=== PATIENT | male | born 1995 | race Caucasian/White ===

== ENCOUNTER 2019-11-07 00:19 | Emergency (ER) | payer SELFPAY ==
[2019-11-07 00:25] VITALS: BP 130/82; PULSE 80; RESP 18; TEMP 37.2; O2SAT 98
--- NOTE | 2019-11-07 00:29 | ED.DENTAL ---
HPI - Dental/Oral General Chief complaint: Dental/Oral Stated complaint: tooth ache Source: patient Mode of arrival: ambulatory Limitations: no limitations History of Present Illness HPI Narrative: Patient is a 24-year-old male who comes emergency department with complaints of dental pain. Patient states that pain has been pretty intense for the last day or so. He denies fevers chills nausea or vomiting. States that his mouth hurts he is having trouble sleeping secondary to the pain. MD Complaint: tooth pain Teeth map: 1. cavity and mildly swollen gum line Onset (ago): day(s) Duration: constant Severity: severe Relieving factors: nothing Context: history of dental caries Treatment prior to arrival: none Related Data Allergies Allergy/AdvReac Type Severity Reaction Status Date / Time ibuprofen Allergy Unknown Verified 11/07/19 00:37 Review of Systems Review of Systems: All systems reviewed & are unremarkable except as noted in HPI and below Constitutional: Constitutional: Denies as per HPI, Denies no additional constitutional complaints, Denies chills, Denies fatigue, Denies fever(s) and Denies weakness Eyes: Eyes: Denies as per HPI, Denies no additional eye complaints, Denies change in vision and Denies photophobia Cardiovascular: Cardiovascular: Denies as per HPI, Denies no additional cardiovascular complaints, Denies chest pain, Denies rapid heart rate, Denies radiating jaw, neck or arm pain and Denies slow heart rate Gastrointestinal: Gastrointestinal: Denies as per HPI, Denies no additional gastrointestinal complaints, Denies abdominal pain, Denies bloating, Denies constipation, Denies heartburn, Denies diarrhea, Denies nausea and Denies vomiting Musculoskeletal: Musculoskeletal: Denies no additional musculoskeletal complaints, Denies as per HPI, Denies back pain, Denies myalgias, Denies arthralgias, Denies joint swelling and Denies muscle cramps Neurologic: Denies system reviewed and no additional complaints, except as documented, Denies as per HPI, Denies confusion, Denies vertigo, Denies dizziness, Denies syncope, Denies headache(s), Denies focal weakness, Denies numbness and Denies weakness Psychiatric: Psychiatric: Denies no additional psychiatric complaints, Denies as per HPI, Denies anxiety, Denies depression, Denies homicidal ideation and Denies suicidal ideation [facility] Social History Social History Smoking status: Current every day smoker Alcohol intake: never Substance use: never Exam Const: General: healthy appearing, no acute distress and alert Orientation/consciousness: patient oriented x3 HENMT: Head: normal to inspection Teeth and gingiva: abnormal tooth and associated gingiva (broken tooth on bottom left. mild gum swelling around base of tooth. no ab) Neck: Neck: normal visual inspection Resp: Effort & Inspection: normal respiratory effort Auscultation: clear to auscultation bilaterally Cardio: Rate: regular rate Rhythm: regular rhythm GI: Auscultation: normal bowel sounds Skin: General skin exam: normal color Neuro: General: patient oriented x3 Extrem: General: normal to inspection Psych: Appearance: grossly normal Mental Status: mental status grossly normal Thought content: Yes Normal thought content present Course Course Emergency Course: pt was mad because we didnt have oragel, pain med, and antibiotics to dispense to him. explained these are things that are at pharmacies, but we would be happy to write him a prescription. Vital Signs Vital signs: Vital Signs Temperature 37.2 C 11/07/19 00:25 Pulse Rate 80 11/07/19 00:25 Respiratory Rate 18 11/07/19 00:25 Blood Pressure 130/82 11/07/19 00:25 Pulse Oximetry 98 11/07/19 00:25 Temperature 37.2 C 11/07/19 00:25 Pulse Rate 80 11/07/19 00:25 Respiratory Rate 18 11/07/19 00:25 Blood Pressure 130/82 11/07/19 00:25 Pulse Oximetr
[2019-11-07] MEDS: ACETAMINOPHEN 500 MG TABLET 1000 MG PO (00:43)
[2019-11-07 00:45] VITALS: BP 130/80; PULSE 86; RESP 18; TEMP 37.2; O2SAT 100
== END 2019-11-07 00:55 | disposition home or self-care (01) ==
PROVIDERS: Emergency Provider Emergency Medicine
DX: K08.89 Other specified disorders of teeth and supporting structures (principal)
CPT/HCPCS: 99283

== ENCOUNTER 2020-02-16 04:52 | Emergency (ER) | payer OTHER, SELFPAY ==
[2020-02-16 04:55] VITALS: BP 140/90; PULSE 98; RESP 20; TEMP 37.4; O2SAT 98
[2020-02-16 05:24] LABS: Basophils Absolute Auto 0.01 K/mm3 (0.00-0.10); Basophils Percent Auto 0.1 % (0.0-1.0); Eosinophils Absolute Auto 0.18 K/mm3 (0.02-0.50); Eosinophils Percent Auto 2.4 % (1.0-6.0); Hematocrit 49.1 % (40.0-54.0); Hemoglobin 16.5 g/dL (14.0-18.0); Immature Granulocyte Absolute 0.02 K/mm3 (0.00-0.00); Immature Granulocyte Percent A 0.3 % (0.0-0.0); Lymphocytes Absolute Auto 1.86 K/mm3 (1.10-4.50); Lymphocytes Percent Auto 24.6 % (18.0-42.0); Mean Corpuscular HGB Conc 33.6 g/dL (32.0-36.0); Mean Corpuscular Hemoglobin 31.8 pg (27.0-31.0); Mean Corpuscular Volume 94.6 fL (78.0-102.0); Mean Platelet Volume 8.8 fl (8.7-11.0); Monocytes Absolute Auto 0.86 K/mm3 (0.10-0.90); Monocytes Percent Auto 11.4 % (2.0-11.0); Neutrophils Absolute Auto 4.6 K/mm3 (1.7-7.2); Neutrophils Percent Auto 61.2 % (50.0-70.0); Platelet Count Result 355 K/mm3 (150-420); Red Blood Count 5.19 M/mm3 (4.70-6.10); Red Cell Distribution Width 12.9 % (11.6-14.4); White Blood Count 7.6 K/mm3 (4.8-10.8)
--- NOTE | 2020-02-16 05:24 | ED.PSYCH ---
HPI - Psych General Source: patient and police Mode of arrival: ambulatory Limitations: no limitations History of Present Illness HPI Narrative: 24-year-old man brought to the emergency department by police after threatening to 2 officers that he was going to kill himself by cutting his own neck with a knife. His girlfriend left him 3 days ago with his child and she has been refusing to see him. He states he took a Klonopin 3 or 4 days ago for anxiety but has had no drugs or alcohol. He states that he had a head injury with loss of consciousness in 2011 but was not hospitalized and had seizures when he was a child. Patient states that he said he would harm himself. He states that he asked his girlfriend's grandmother anything would change if he were to kill himself. complaint: suicidal ideation Onset (ago): hour(s) (1-2) Duration: constant History of same: No Relieving factors: none Exacerbating factors: none Associated psychiatric symptoms: suicidal ideation Associated symptoms: denies other symptoms Treatments prior to arrival: placed on mental health hold and physical restraints If self harm: admits thoughts of self harm (but denies that he will act on it.) Details of plan: as above Related Data Allergies Allergy/AdvReac Type Severity Reaction Status Date / Time ibuprofen Allergy Unknown Verified 11/07/19 00:37 Review of Systems Constitutional: Constitutional: Denies chills and Denies fever(s) Eyes: Eyes: Denies change in vision and Denies photophobia ENT: Denies dysphagia, Denies nasal congestion and Denies sore throat Cardiovascular: Cardiovascular: Denies chest pain and Denies radiating jaw, neck or arm pain Respiratory: Respiratory: Denies cough and Denies dyspnea Gastrointestinal: Gastrointestinal: Denies abdominal pain, Denies diarrhea, Denies nausea and Denies vomiting Genitourinary: Genitourinary: Denies dysuria and Denies urinary frequency Musculoskeletal: Musculoskeletal: Denies arthralgias and Denies joint swelling Integumentary/Breasts: Skin/Breast: Denies pruritus, Denies erythema and Denies rash Neurologic: Denies vertigo, Denies dizziness and Denies syncope Hematologic/Lymphatic: Hematologic/Lymphatic: Denies easy bleeding and Denies easy bruising Allergic/Immunologic: Allergic/Immunologic: Denies lip swelling and Denies tongue swelling PMFSH Past Medical History Medical History (Updated 02/19/20 @ 07:08 by Red Mendiola MD) History of seizures as a child Social History Social History Smoking status: Current every day smoker Alcohol intake: current Alcohol use details: occasional Substance use: never Living arrangements: with family Exam Const: General: healthy appearing, no acute distress and alert Orientation/consciousness: patient oriented x3 Limitations: no limitations HENMT: Head: normal to inspection Ears: external ears normal, TM's normal bilaterally and EAC's normal General nose exam: Normal nares present Face and sinus: normal facial exam Mouth: Yes Normal oral and palatal mucosa present Throat: posterior oropharynx normal Eyes: Conjunctivae: conjunctivae normal Pupils: Equal, round and reactive pupils present EOM: EOMs intact bilaterally Resp: Effort & Inspection: normal respiratory effort and not labored Auscultation: clear to auscultation bilaterally, no rales, no rhonchi and no wheezes Cardio: Rate: regular rate Rhythm: regular rhythm Heart sounds: no murmurs Skin: General skin exam: normal color, no jaundice and no pallor Rashes: no rashes Neuro: General: patient oriented x3, moves all extremities, no focal motor deficits and CN's II-XI intact bilaterally Speech: normal speech Gait exam (Neuro): Normal gait present Extrem: General: no clubbing, cyanosis or edema Psych: Appearance: grossly normal and well kempt Affect: normal affect Attitude: cooperative Thought cont
[2020-02-16 05:36] LABS: Appearance Urine Clear (Clear); Bilirubin Urine Negative (Negative); Color Urine Yellow (Yellow); Glucose Urine UA 1+ (Negative); Ketones Urine Negative (Negative); Leukocyte Esterase Ur Negative LEU/UL (Negative); Nitrate Urine Negative (Negative); Protein Urine Negative (Negative); Specific Grav Ur <= 1.005 (1.010-1.020); Urobilinogen Urine 0.2 mg/dL (0.2-1.0); pH Urine 6.5 (5.0-8.0)
[2020-02-16 05:41] LABS: Amphetamine Screen Urine Negative (Negative); Barbiturate Screen Urine Negative (Negative); Benzodiazepines Screen Urine Negative (Negative); Cannabinoid Screen Urine Negative (Negative); Cocaine Screen Urine Negative (Negative); Methadone Screen Urine Negative (Negative); Opiate Screen Urine Negative (Negative); Phencyclidine Screen Urine Negative (Negative)
[2020-02-16 05:42] LABS: Add Urine Microscopic? YES; Bacteria Urine None seen /hpf; Blood Urine Trace-Intact (Negative); RBC Urine 0-2 /hpf (0-2); Squamous Epithelial Cell Urine None seen /hpf (Few); WBC Urine 0-3 /hpf (0-3)
[2020-02-16 05:53] LABS: Alanine Aminotransferase 21 U/L (16-63); Albumin Level 4.6 g/dL (3.4-5.0); Alkaline Phosphatase 71 U/L (46-116); Anion Gap 8 mmol/L (8-16); Aspartate Amino Transferase 15 U/L (15-37); Bilirubin,Total 0.7 mg/dL (0.00-1.00); Blood Urea Nitrogen 8 mg/dL (7-18); Carbon Dioxide 30 mmol/L (21-32); Chloride 102 mmol/L (98-108); Estimated Glomerular Filt Rate > 60; Glucose 95 mg/dL (70-99); Osmolality Calculated 288 mOsm/kg (285-295); Potassium 3.3 mmol/L (3.5-5.1); Salicylate 1.2 mg/dL (2.8-20.0); Sodium 140 mmol/L (136-145); Thyroid Stimulating Hormone 1.34 uIU/mL (0.36-3.74); Total Protein 8.1 g/dL (6.4-8.2)
[2020-02-16 05:56] LABS: Acetaminophen 0 ug/mL (10-30); Ethanol < 3 mg/dL (0-6)
--- NOTE | 2020-02-16 05:57 | PC.NURSE ---
Patient put in hospital gown, patient's belongings are hospital safe, I filled out belongings list and patient signed, patient aware and verbalized understanding.
--- NOTE | 2020-02-16 06:06 | PC.NURSE ---
Patient is sleeping/resting at this time.
--- NOTE | 2020-02-16 06:27 | PC.NURSE ---
call to [facility] for [facility] resource staff.
--- NOTE | 2020-02-16 07:14 | PC.NURSE ---
0550 pt sleeping, 0630 pt sleeping, 0700, pt sleeping . repeated calls from juliana lovell.
--- NOTE | 2020-02-16 07:15 | PC.NURSE ---
call from juliana lovell, counselor from [facility] will be out for eval after opening this morning around 9am.
--- NOTE | 2020-02-16 07:40 | PC.NURSE ---
0730 pt awake, calling boss to call off work. declined breakfast tray offered. soda given per request
[2020-02-16 07:51] VITALS: BP 136/90; PULSE 87; RESP 20; TEMP 37.1; O2SAT 98
--- NOTE | 2020-02-16 08:20 | PC.NURSE ---
food offered, pt declined. cooperative, resting per cot.
--- NOTE | 2020-02-16 09:30 | PC.NURSE ---
pt asking how much longer, explained procedure. awaiting arrival of counselor. offered meal , pt declined. remains in direct vision of RN and/or TECH. pt cooperative.
--- NOTE | 2020-02-16 10:02 | ED.PSYCH ---
HPI - Psych General Chief Complaint: Psychiatric Symptoms Stated Complaint: Mental Health Evaluation Time Seen by Provider: 02/16/20 05:24 Source: patient and police Mode of arrival: ambulatory History of Present Illness Duration: constant Relieving factors: none Exacerbating factors: none Associated symptoms: denies other symptoms Treatments prior to arrival: placed on mental health hold and physical restraints Related Data Allergies Allergy/AdvReac Type Severity Reaction Status Date / Time ibuprofen Allergy Unknown Verified 11/07/19 00:37 [facility] Past Medical History Medical History (Updated 02/16/20 @ 10:06 by Yoseph Scott MD) History of seizures as a child Social History Social History Smoking status: Current every day smoker Alcohol intake: current Alcohol use details: occasional Substance use: never Living arrangements: with family Course Course Emergency Course: Psych Clinician in house has evaluated patient and feels patient is safe to go home w/ deflection/safety plan. I discussed w/ patient who also agrees he is safe and in no harm. He is comfortable going home. Has never atempted suicide or thought of suicide in past. Patient admits he needs help for Anxiety and is willing to d/c home w/ safety plan. Vital Signs Vital signs: Vital Signs Temperature 99.3 F 02/16/20 04:55 Pulse Rate 98 02/16/20 04:55 Respiratory Rate 20 02/16/20 04:55 Blood Pressure 140/90 02/16/20 04:55 Pulse Oximetry 98 02/16/20 04:55 Temperature 98.7 F 02/16/20 07:51 Pulse Rate 87 02/16/20 07:51 Respiratory Rate 20 02/16/20 07:51 Blood Pressure 136/90 02/16/20 07:51 Pulse Oximetry 98 02/16/20 07:51 MDM - Psych Lab Data Result diagrams: 02/16/20 05:10 02/16/20 05:10 Labs: Lab Results 02/16/20 02/16/20 02/16/20 Range/Units 05:10 05:10 05:10 WBC 7.6 (4.8-10.8) K/mm3 RBC 5.19 (4.70-6.10) M/mm3 Hgb 16.5 (14.0-18.0) g/dL Hct 49.1 (40.0-54.0) % MCV 94.6 (78.0-102.0) fL MCH 31.8 H (27.0-31.0) pg MCHC 33.6 (32.0-36.0) g/dL RDW 12.9 (11.6-14.4) % Plt Count 355 (150-420) K/mm3 MPV 8.8 (8.7-11.0) fl Immature Gran % (Auto) 0.3 H (0.0-0.0) % Neut % (Auto) 61.2 (50.0-70.0) % Lymph % (Auto) 24.6 (18.0-42.0) % [place] % (Auto) 11.4 H (2.0-11.0) % Eos % (Auto) 2.4 (1.0-6.0) % Baso % (Auto) 0.1 (0.0-1.0) % Lymph # (Auto) 1.86 (1.10-4.50) K/mm3 [place] # (Auto) 0.86 (0.10-0.90) K/mm3 Eos # (Auto) 0.18 (0.02-0.50) K/mm3 Baso # (Auto) 0.01 (0.00-0.10) K/mm3 Abs Immat Gran (auto) 0.02 H (0.00-0.00) K/mm3 Absolute Neuts (auto) 4.6 (1.7-7.2) K/mm3 Absolute Nucleated RBC 0.00 (0.00-0.00) K/mm3 Nucleated RBC % 0.0 (0-0.0) % Sodium (136-145) mmol/L Potassium (3.5-5.1) mmol/L Chloride (98-108) mmol/L Carbon Dioxide (21-32) mmol/L Anion Gap (8-16) mmol/L BUN (7-18) mg/dL Creatinine (0.70-1.30) mg/dL Estim Creat Clear Calc Estimated GFR (59 - ) Glucose (70-99) mg/dL Calculated Osmolality (285-295) mOsm/kg Calcium (8.5-10.1) mg/dL Total Bilirubin (0.00-1.00) mg/dL AST (15-37) U/L ALT (16-63) U/L Alkaline Phosphatase (46-116) U/L Total Protein (6.4-8.2) g/dL Albumin (3.4-5.0) g/dL TSH (0.36-3.74) uIU/mL Urine Color Yellow (Yellow) Urine Appearance Clear (Clear) Urine pH 6.5 (5.0-8.0) Ur Specific [place] <= 1.005 L (1.010-1.020) Urine Protein Negative (Negative) Urine Glucose (UA) 1+ H (Negative) Urine Ketones Negative (Negative) Ur Blood (Man) Trace-intact H (Negative) Urine Nitrate Negative (Negative) Urine Bilirubin Negative (Negative) Urine Urobilinogen 0.2 (0.2-1.0) mg/dL Leukocyte Esterase Rfl Negative (Negative) KASEY/UL Urine
[2020-02-16 10:14] VITALS: BP 136/85; PULSE 102; RESP 20; TEMP 37.1; O2SAT 98
== END 2020-02-16 10:23 | disposition home or self-care (01) ==
PROVIDERS: Emergency Medicine; Emergency Provider Family Medicine
DX: F41.9 Anxiety disorder, unspecified (principal); R45.851 Suicidal ideations
CPT/HCPCS: 36415; 80053; 80307; 81001; 84443; 85025; 99284

== ENCOUNTER 2020-03-13 00:54 | Emergency (ER) | payer OTHER, SELFPAY ==
--- NOTE | ~2020-03-13 | XR_ITS ---
EXAMINATION: XR forearm LT 2V DATE: 03/13/2020 02:00 INDICATION: Left wrist and elbow pain. Fall 2 days ago. TECHNIQUE: 2 views of left forearm were obtained. COMPARISON: None. FINDINGS: Bone alignment is normal. No fracture. Joint spaces are well maintained. There is no elbow joint effusion. IMPRESSION: 1. Normal left forearm. Reviewed, dictated and finalized at location A. [facility] [employer]CEPTIONIST ASSISTANT IMPRESSION: 1. Normal left forearm.
[2020-03-13 01:27] VITALS: BP 141/89; PULSE 81; RESP 20; TEMP 36.4; O2SAT 98
--- NOTE | 2020-03-13 01:56 | ED.UPPEXIN ---
HPI - Extremity Injury (Upper) General Chief Complaint: Extremity Injury, Upper Stated Complaint: arm pain Source: patient Mode of arrival: ambulatory Limitations: no limitations History of Present Illness HPI narrative: This is a 24-year-old male presents with some injury to his left forearm after he fell off a ladder 2 days ago has limited range of motion secondary to pain there is some point tenderness in the elbow and mid forearm area with no numbness or tingling as strong brisk radial pulse. No other injuries, no nausea vomiting no shortness of breath no chest pain no fever chills. complaint: injury to: left and forearm Handedness: right Place: home Severity: mild Severity scale (1-10): 5 Exacerbating factors: none Context: fall Associated symptoms: denies other symptoms Related Data Home Medications Medication Instructions Recorded Confirmed No Home Medications 03/13/20 03/13/20 Allergies Allergy/AdvReac Type Severity Reaction Status Date / Time ibuprofen Allergy Unknown Verified 11/07/19 00:37 Review of Systems Review of Systems: All systems reviewed & are unremarkable except as noted in HPI and below PMFSH Past Medical History Medical History History of seizures as a child Social History Social History Smoking status: Current every day smoker Alcohol intake: current Substance use: never Exam Const: General: no acute distress Orientation/consciousness: patient oriented x3 HENMT: Head: normal to inspection Eyes: Conjunctivae: conjunctivae normal Pupils: Equal, round and reactive pupils present Neck: Neck: normal visual inspection Chest: Chest palpation & inspection: normal inspection of the chest Resp: Effort & Inspection: normal respiratory effort Cardio: Rate: regular rate Rhythm: regular rhythm GI: GI Palp: Yes Soft to palpation Auscultation: normal bowel sounds Skin: General skin exam: normal color Rashes: no rashes Neuro: General: patient oriented x3, moves all extremities and no meningeal signs Extrem: Other: Point tenderness elbow and mid forearm on the left Psych: Mental Status: mental status grossly normal Course Course Emergency Course: patient declined any pain medication but will evaluate the left elbow and forearm with x-ray. Vital Signs Vital signs: Vital Signs Temperature 36.4 C L 03/13/20 01:27 Pulse Rate 81 03/13/20 01:27 Respiratory Rate 20 11/08/20 01:27 Blood Pressure 141/89 H 03/13/20 01:27 Pulse Oximetry 98 03/13/20 01:27 Temperature 36.4 C L 03/13/20 01:27 Pulse Rate 81 03/13/20 01:27 Respiratory Rate 20 03/13/20 01:27 Blood Pressure 141/89 H 03/13/20 01:27 Pulse Oximetry 98 03/13/20 01:27 Critical Care Time Critical Care Time Critical Care Time: No Discharge Plan Discharge Clinical Impression: Sprain and strain of elbow Patient Disposition: Home, Self-Care Condition: Stable Instructions: Antibiotic Form, Elbow Sprain (ED) Additional Instructions: Can take Tylenol extra-strength 2 to 3 times daily for pain and inflammation, and follow-up with primary care physician if symptoms persist or worsen. Prescriptions: No Action No Home Medications RF: 0 Follow-up/Referrals: UNKNOWN,DOCTOR [Primary Care Provider] - Time of Disposition: 02:03
[2020-03-13 02:16] VITALS: BP 130/70; PULSE 82; RESP 18; TEMP 36.5; O2SAT 99
== END 2020-03-13 02:22 | disposition home or self-care (01) ==
PROVIDERS: Emergency Provider Emergency Medicine
DX: S53.402A Unspecified sprain of left elbow, initial encounter (principal); W11.XXXA Fall on and from ladder, initial encounter
CPT/HCPCS: 73090; 99282; 99283

== ENCOUNTER 2020-08-06 03:20 | Emergency (ER) | payer OTHER, SELFPAY ==
[2020-08-06 03:27] VITALS: BP 138/91; PULSE 110; RESP 20; TEMP 36.8; O2SAT 96
--- NOTE | 2020-08-06 03:34 | ED.URI ---
HPI - URI/Sore Throat General Chief Complaint: Unspecified Stated Complaint: Cough Time Seen by Provider: 08/06/20 03:34 Source: patient Mode of arrival: ambulatory Limitations: no limitations History of Present Illness HPI Narrative: Patient comes in stating he has had 6 episodes of emesis yesterday starting at about 7pm. He states he has had a cough since throwing up, and has had a mild sore throat. He has had no fever, and no chills. He complains of body aches, and comes in wanting to be tested for Covid. He has not taken anything for his body aches. MD elicited complaint: cough and rhinorrhea Onset (ago): hour(s) Consistency: intermittent Severity: mild Description of mucous: watery Able to tolerate fluids by mouth: Yes Exacerbating factors: nothing Relieving factors: nothing Context: sick contacts Associated symptoms: denies other symptoms Related Data Home Medications Medication Instructions Recorded Confirmed No Home Medications 03/13/20 03/13/20 Allergies Allergy/AdvReac Type Severity Reaction Status Date / Time ibuprofen Allergy Unknown Verified 11/07/19 00:37 Review of Systems Constitutional: Constitutional: Reports no additional constitutional complaints Eyes: Eyes: Reports no additional eye complaints ENT: Comments: Stopped up nose, clear thin nasal discharge. Cardiovascular: Cardiovascular: Reports no additional cardiovascular complaints Respiratory: Respiratory: Reports no additional respiratory complaints Gastrointestinal: Comments: Loose stools x2 last pm Genitourinary: Genitourinary: Reports no additional male genitourinary complaints Musculoskeletal: Musculoskeletal: Reports no additional musculoskeletal complaints Integumentary/Breasts: Skin/Breast: Reports system reviewed and no additional complaints, except as docu Neurologic: Reports system reviewed and no additional complaints, except as documented Psychiatric: Psychiatric: Reports no additional psychiatric complaints Endocrine: Endocrine: Reports no additional endocrine complaints Hematologic/Lymphatic: Hematologic/Lymphatic: Reports no additional hematologic/lymphatic complaints Allergic/Immunologic: Allergic/Immunologic: Reports no additional allergic/immunologic complaints [facility] Past Medical History Medical History (Updated 08/06/20 @ 04:33 by Robert Bailey MD) Depression History of seizures as a child Surgical History Surgical History (Updated 08/06/20 @ 04:12 by Robert Bailey MD) No significant past surgical history Family History Family History Mother Alcoholic Father Depression Anxiety Social History Social History Smoking status: Current every day smoker Alcohol intake: current Substance use: never Gender identity (if verbalized by the patient): Male Exam Const: General: no acute distress Orientation/consciousness: patient oriented x3 HENMT: Head: normal to inspection Ears: external ears normal and TM's normal bilaterally Mouth: Yes Normal oral and palatal mucosa present Other: erythema of pharynx, no exudates Eyes: Conjunctivae: conjunctivae normal Neck: Neck: normal visual inspection Chest: Chest palpation & inspection: normal inspection of the chest Resp: Effort & Inspection: normal respiratory effort Auscultation: clear to auscultation bilaterally Cardio: Rate: regular rate Rhythm: regular rhythm GI: GI Palp: Yes Soft to palpation (nontender) Auscultation: normal bowel sounds Skin: General skin exam: normal color Neuro: General: patient oriented x3 and moves all extremities Extrem: General: normal to inspection Psych: Appearance: grossly normal Mental Status: mental status grossly normal Thought content: Yes Normal thought content present Course Course Emergency Course: Rapid Covid and influenza tests were done. These were negative. I believe
[2020-08-06 04:23] LABS: Influenza A QL RT-PCR Negative (Negative); Influenza B QL RT-PCR Negative (Negative); SARS-CoV-2 RNA PCR Negative (Negative)
[2020-08-06 04:43] VITALS: BP 120/88; PULSE 78; RESP 18; TEMP 37
== END 2020-08-06 04:44 | disposition home or self-care (01) ==
PROVIDERS: Emergency Provider Emergency Medicine
DX: B34.9 Viral infection, unspecified (principal); Z20.822 Contact with and (suspected) exposure to COVID-19
CPT/HCPCS: 87502; 99281; 99283; C9803; U0003; U0005

== ENCOUNTER 2021-03-09 05:55 | Emergency (ER) | payer OTHER, SELFPAY ==
--- NOTE | ~2021-03-09 | XR_ITS ---
EXAMINATION: XR chest 1V portable DATE: 03/09/2021 06:29 INDICATION: Fever, cough and dyspnea TECHNIQUE: frontal view of the chest was obtained. COMPARISON: None FINDINGS: The lungs are clear with no focal airspace opacities, pulmonary edema, pleural effusion or pneumothor ax. The cardiomediastinal silhouette is normal. Visualized bones and soft tissues are unremarkable. IMPRESSION: 1. Normal chest radiograph. Reviewed, dictated and finalized at location A. IMPRESSION: 1. Normal chest radiograph.
--- NOTE | 2021-03-09 06:06 | ED.SOB ---
HPI - SOB/Dyspnea General Chief Complaint: Nausea/Vomiting/Diarrhea Stated Complaint: Cough, Sore throat Time Seen by Provider: 03/09/21 05:55 Source: patient Mode of arrival: EMS Limitations: no limitations History of Present Illness HPI Narrative: Previously well 25-year-old man brought to the emergency department by EMS after he was found walking to the hospital. Patient states that he has had cough, shortness of breath, sore throat, vomiting and fatigue for the last 3 or 4 days. He states that he was in contact with somebody with similar symptoms but does not know if they had Covid. Denies chest pain, diarrhea, rash, syncope. MD elicited complaint: shortness of breath and cough Onset (ago): day(s) (4) Timing: constant Severity: moderate Exacerbating factors: inspiration Relieving factors: nothing Associated symptoms: fever, cough and nausea/vomiting Treatment prior to arrival: none Related Data Home oxygen amount: none Allergies Allergy/AdvReac Type Severity Reaction Status Date / Time ibuprofen Allergy Severe Seizure Verified 03/09/21 06:09 Review of Systems Review of Systems: All systems reviewed & are unremarkable except as noted in HPI and below Constitutional: Constitutional: Denies chills, Reports fatigue and Reports fever(s) Eyes: Eyes: Denies change in vision and Denies photophobia ENT: Reports nasal congestion and Reports sore throat Cardiovascular: Cardiovascular: Denies chest pain and Denies radiating jaw, neck or arm pain Respiratory: Respiratory: Reports chest congestion, Reports cough, Reports dyspnea and Denies wheezing Gastrointestinal: Gastrointestinal: Reports abdominal pain, Denies diarrhea, Reports nausea and Reports vomiting Integumentary/Breasts: Skin/Breast: Denies pruritus, Denies erythema and Denies rash Neurologic: Denies vertigo, Denies dizziness, Denies syncope and Denies focal weakness Hematologic/Lymphatic: Hematologic/Lymphatic: Denies easy bleeding and Denies easy bruising Allergic/Immunologic: Allergic/Immunologic: Denies lip swelling and Denies throat swelling PMFSH Past Medical History Medical History Depression History of seizures as a child Surgical History Surgical History No significant past surgical history Family History Family History Mother Alcoholic Father Depression Anxiety Social History Social History Smoking status: Current every day smoker Alcohol intake: current Alcohol use details: occasional Substance use: never Gender identity (if verbalized by the patient): Male Exam Const: General: alert and ill appearing (mild) acutely Orientation/consciousness: patient oriented x3 Limitations: no limitations Other: Mild acute distress. HENMT: Head: normal to inspection Ears: external ears normal, TM's normal bilaterally and EAC's normal General nose exam: Normal nares present Face and sinus: normal facial exam Mouth: Yes moist mucous membranes Throat: posterior oropharynx normal Eyes: Conjunctivae: conjunctivae normal Pupils: Equal, round and reactive pupils present EOM: EOMs intact bilaterally Resp: Effort & Inspection: normal respiratory effort and not labored Auscultation: clear to auscultation bilaterally, no rales, no rhonchi and no wheezes Cardio: Rate: regular rate Rhythm: regular rhythm Heart sounds: no murmurs GI: GI Palp: Yes Soft to palpation and No Tenderness to palpation present (GI) Skin: General skin exam: normal color, no jaundice and no pallor Rashes: no rashes Neuro: General: patient oriented x3, moves all extremities, no focal motor deficits and CN's II-XI intact bilaterally Speech: normal speech Extrem: General: normal to inspection and no clubbing, cyanosis or edema Psych: Mental
[2021-03-09 06:10] VITALS: BP 133/89; PULSE 101; RESP 19; TEMP 36.6; O2SAT 98
--- NOTE | 2021-03-09 06:20 | PC.NURSE ---
pt arrive via [facility], EMS reports that the pt was walking to the hospital because he has been feeling sick, throwing up and losing taste and smell.
[2021-03-09 07:01] LABS: Influenza A QL RT-PCR Negative (Negative); Influenza B QL RT-PCR Negative (Negative); SARS-CoV-2 RNA PCR Negative (Negative)
[2021-03-09] MEDS: ACETAMINOPHEN 500 MG TABLET 1000 MG PO (07:22)
[2021-03-09 07:37] VITALS: BP 125/74; PULSE 89; RESP 16; TEMP 36.4; O2SAT 99
== END 2021-03-09 07:40 | disposition home or self-care (01) ==
PROVIDERS: Emergency Provider Emergency Medicine
DX: J20.8 Acute bronchitis due to other specified organisms (principal); Z20.822 Contact with and (suspected) exposure to COVID-19
CPT/HCPCS: 71045; 87502; 99283; C9803; U0003; U0005

== ENCOUNTER 2021-03-19 22:10 | Emergency (ER) | payer OTHER, SELFPAY ==
[2021-03-19 22:30] VITALS: BP 131/91; PULSE 108; RESP 17; TEMP 36.9; O2SAT 96
--- NOTE | 2021-03-19 22:36 | ED.URI ---
HPI - URI/Sore Throat General Chief Complaint: Upper Respiratory Infection Stated Complaint: DOESN'T FEEL WELL Time Seen by Provider: 03/19/21 22:37 Source: patient Mode of arrival: ambulatory Limitations: no limitations History of Present Illness HPI Narrative: 25-year-old man comes in today complaining of a rash on his sides, cough that is sometimes productive of yellow sputum, diarrhea, and chest congestion. He was seen here on 03/09/21 and prescribed a short course of steroids, albuterol, and azithromycin for a persistent cough. He states his symptoms did not improve. He denies fever and vomiting. He states that he needs a new inhaler because he has only 60 uses left. MD elicited complaint: cough and nasal congestion Onset (ago): week(s) (2) Consistency: constant and progressively worsening Severity: moderate Description of mucous: yellow Able to tolerate fluids by mouth: Yes Relieving factors: nothing Context: sick contacts Associated symptoms: nasal congestion, cough and rash Related Data Allergies Allergy/AdvReac Type Severity Reaction Status Date / Time ibuprofen Allergy Severe Seizure Verified 03/09/21 06:09 Review of Systems Review of Systems: All systems reviewed & are unremarkable except as noted in HPI and below Constitutional: Constitutional: Denies chills and Denies fever(s) ENT: Reports nasal congestion and Denies sore throat Cardiovascular: Cardiovascular: Denies chest pain and Denies radiating jaw, neck or arm pain Respiratory: Respiratory: Reports chest congestion, Reports cough and Denies dyspnea Gastrointestinal: Gastrointestinal: Reports diarrhea, Denies nausea and Denies vomiting Integumentary/Breasts: Skin/Breast: Reports pruritus, Denies erythema and Reports rash PMFSH Past Medical History Medical History Depression History of seizures as a child Surgical History Surgical History No significant past surgical history Family History Family History Mother Alcoholic Father Depression Anxiety Social History Social History Smoking status: Current every day smoker Alcohol intake: current Alcohol use details: occasional Substance use: never Gender identity (if verbalized by the patient): Male Exam Const: General: healthy appearing, no acute distress and alert Orientation/consciousness: patient oriented x3 Limitations: no limitations HENMT: Head: normal to inspection Ears: external ears normal, TM's normal bilaterally and EAC's normal General nose exam: Normal nares present Face and sinus: normal facial exam Mouth: Yes moist mucous membranes Other: Mild pharyngeal erythema without masses, exudate or swelling. Eyes: Conjunctivae: conjunctivae normal Pupils: Equal, round and reactive pupils present EOM: EOMs intact bilaterally Resp: Effort & Inspection: normal respiratory effort and not labored Auscultation: clear to auscultation bilaterally, no rales, no rhonchi and no wheezes Cardio: Rate: regular rate Rhythm: regular rhythm Heart sounds: no murmurs Skin: General skin exam: normal color, no jaundice and no pallor Other: Eczematous rash on flanks and lateral abdomen bilaterally. No urticaria. Neuro: General: patient oriented x3, moves all extremities, no focal motor deficits and CN's II-XI intact bilaterally Speech: normal speech Gait exam (Neuro): Normal gait present Extrem: General: normal to inspection and no clubbing, cyanosis or edema Psych: Appearance: grossly normal and well kempt Mental Status: mental status grossly normal Affect: normal affect Attitude: cooperative Thought content: Yes Normal thought content present Course Vital Signs Vital signs: Vital Signs Temperature 36.9 C 03/19/21 22:30 Pulse Rate 108 H
[2021-03-19 23:16] LABS: SARS-CoV-2 Ag Negative (Negative)
[2021-03-19 23:28] VITALS: BP 139/93; PULSE 108; RESP 20; TEMP 36.9; O2SAT 98
== END 2021-03-19 23:30 | disposition home or self-care (01) ==
PROVIDERS: Emergency Provider Emergency Medicine
DX: J40 Bronchitis, not specified as acute or chronic (principal); J98.01 Acute bronchospasm; Z20.822 Contact with and (suspected) exposure to COVID-19
CPT/HCPCS: 87426; 99283; C9803

== ENCOUNTER 2021-06-11 08:00 | Emergency (ER) | payer OTHER, SELFPAY ==
[2021-06-11 08:10] VITALS: BP 144/102; PULSE 102; RESP 16; TEMP 36.4; O2SAT 97; O2SAT 98
[2021-06-11 09:04] LABS: SARS-CoV-2 RNA PCR Negative (Negative)
[2021-06-11 09:15] LABS: Influenza A QL RT-PCR Negative (Negative); Influenza B QL RT-PCR Negative (Negative)
--- NOTE | 2021-06-11 09:22 | ED.URI ---
HPI - URI/Sore Throat General Chief Complaint: Upper Respiratory Infection Stated Complaint: cough,vomiting,nausea,body aches Source: patient and RN notes reviewed Mode of arrival: ambulatory Limitations: no limitations History of Present Illness MD elicited complaint: cough and sore throat Onset (ago): day(s) (1) Consistency: intermittent and progressively worsening Severity: moderate Description of mucous: yellow Able to tolerate fluids by mouth: Yes Relieving factors: nothing Associated symptoms: myalgias, headache, nasal congestion, sore throat, cough, nausea, vomiting and diarrhea Treatments prior to arrival: none Related Data Allergies Allergy/AdvReac Type Severity Reaction Status Date / Time ibuprofen Allergy Severe Seizure Verified 06/11/21 08:19 Review of Systems Review of Systems: All systems reviewed & are unremarkable except as noted in HPI and below PMFSH Past Medical History Medical History Depression History of seizures as a child Surgical History Surgical History No significant past surgical history Family History Family History Mother Alcoholic Father Depression Anxiety Social History Social History Smoking status: Current every day smoker Alcohol intake: current Alcohol use details: occasional Substance use: never Gender identity (if verbalized by the patient): Male Exam Const: General: healthy appearing, no acute distress and alert Nutritional Appearance: well nourished Orientation/consciousness: patient oriented x3 HENMT: Head: normal to inspection Ears: external ears normal General nose exam: Normal external nose present Face and sinus: normal facial exam Mouth: Yes Normal oral and palatal mucosa present and Yes lip normal Throat: posterior oropharynx normal and uvula midline Eyes: Conjunctivae: conjunctivae normal Pupils: Equal, round and reactive pupils present EOM: EOMs intact bilaterally Neck: Neck: normal visual inspection and no lymphadenopathy Resp: Effort & Inspection: normal respiratory effort Auscultation: clear to auscultation bilaterally Cardio: Rate: regular rate Rhythm: regular rhythm GI: GI Palp: Yes Soft to palpation, No Tenderness to palpation present (GI) and No Guarding due to palpation present (GI) Auscultation: normal bowel sounds Back/Spine/Pelvis: Cervical Spine: cervical ROM normal Thoracic/Lumbar Spine: thoraco-lumbar ROM normal Skin: General skin exam: normal color Rashes: no rashes Neuro: General: patient oriented x3, moves all extremities, no meningeal signs, no focal motor deficits and CN's II-XI intact bilaterally Speech: normal speech Gait exam (Neuro): Normal gait present Extrem: General: normal to inspection and no clubbing, cyanosis or edema Psych: Appearance: grossly normal and well kempt Mental Status: mental status grossly normal Affect: normal affect Attitude: cooperative Thought content: Yes Normal thought content present Course Vital Signs Vital signs: Vital Signs Temperature 36.4 C 06/11/21 08:10 Pulse Rate 102 H 06/11/21 08:10 Respiratory Rate 16 06/11/21 08:10 Blood Pressure 144/102 H 06/11/21 08:10 Pulse Oximetry 98 06/11/21 08:10 Temperature 36.4 C 06/11/21 08:10 Pulse Rate 97 06/11/21 09:46 Respiratory Rate 16 06/11/21 09:46 Blood Pressure 133/83 06/11/21 09:46 Pulse Oximetry 98 06/11/21 09:46 MDM - URI/Sore Throat Lab Data Labs: Lab Results 06/11/21 06/11/21 Range/Units 08:27 09:14 Influenza A (RT-PCR) Negative (Negative) Influenza B (RT-PCR) Negative (Negative) SARS-CoV-2 RNA (RT-PCR) Negative (Negative) Discharge Plan Discharge Clinical Impression: Upper respiratory infection Qualifiers: URI type: unspecified v
[2021-06-11 09:46] VITALS: BP 133/83; PULSE 97; RESP 16; O2SAT 98
== END 2021-06-11 09:45 | disposition home or self-care (01) ==
PROVIDERS: Emergency Provider Emergency Medicine
DX: J06.9 Acute upper respiratory infection, unspecified (principal); Z20.822 Contact with and (suspected) exposure to COVID-19
CPT/HCPCS: 87502; 99283; C9803; U0003; U0005

== ENCOUNTER 2021-09-06 11:58 | Emergency (ER) | payer OTHER, SELFPAY ==
[2021-09-06 12:32] VITALS: BP 133/81; PULSE 94; TEMP 36.6; O2SAT 96
--- NOTE | 2021-09-06 12:50 | ED.URI ---
HPI - URI/Sore Throat General Chief Complaint: Upper Respiratory Infection Stated Complaint: SORE THROAT Time Seen by Provider: 09/06/21 12:50 Source: patient History of Present Illness HPI Narrative: 26-year-old male, smoker with depression presented to the ER with 1 day history of -- sore throat -- purulent nasal discharge -- generalized weakness -- fullness of his ears. no pain or discharge patient is afebrile. MD elicited complaint: sore throat, rhinorrhea and nasal congestion Onset (ago): day(s) ( Started 1 day ago) Consistency: constant Severity: mild Description of mucous: yellow Able to tolerate fluids by mouth: Yes Exacerbating factors: nothing Relieving factors: nothing Associated symptoms: denies other symptoms Treatments prior to arrival: none Related Data Home Medications Medication Instructions Recorded Confirmed No Home Medications 09/06/21 09/06/21 Allergies Allergy/AdvReac Type Severity Reaction Status Date / Time ibuprofen Allergy Severe Seizure Verified 09/06/21 12:34 Review of Systems Review of Systems: All systems reviewed & are unremarkable except as noted in HPI and below Constitutional: Constitutional: Reports as per HPI and Reports no additional constitutional complaints Eyes: Eyes: Reports as per HPI and Reports no additional eye complaints ENT: Reports system reviewed and no additional complaints, except as documented, Reports nasal congestion and Reports sore throat Comments: ear fullness Cardiovascular: Cardiovascular: Reports as per HPI and Reports no additional cardiovascular complaints Respiratory: Respiratory: Reports as per HPI Gastrointestinal: Gastrointestinal: Reports as per HPI and Reports no additional gastrointestinal complaints Genitourinary: Genitourinary: Reports no additional male genitourinary complaints and Reports as per HPI Musculoskeletal: Musculoskeletal: Reports no additional musculoskeletal complaints and Reports as per HPI Integumentary/Breasts: Skin/Breast: Reports system reviewed and no additional complaints, except as docu and Reports as per HPI Neurologic: Reports system reviewed and no additional complaints, except as documented and Reports as per HPI Psychiatric: Psychiatric: Reports no additional psychiatric complaints and Reports as per HPI Endocrine: Endocrine: Reports no additional endocrine complaints and Reports as per HPI Hematologic/Lymphatic: Hematologic/Lymphatic: Reports no additional hematologic/lymphatic complaints and Reports as per HPI Allergic/Immunologic: Allergic/Immunologic: Reports no additional allergic/immunologic complaints and Reports as per HPI [facility] Past Medical History Medical History Depression History of seizures as a child Surgical History Surgical History No significant past surgical history Family History Family History Mother Alcoholic Father Depression Anxiety Social History Social History Smoking status: Current every day smoker Alcohol intake: current Alcohol use details: occasional Substance use: never Gender identity (if verbalized by the patient): Male Exam Const: General: no acute distress and alert Orientation/consciousness: patient oriented x3 HENMT: Head: normal to inspection Ears: TM's normal bilaterally and EAC's normal Mouth: Yes lip normal and Yes moist mucous membranes Eyes: Conjunctivae: conjunctivae normal Pupils: Equal, round and reactive pupils present EOM: EOMs intact bilaterally Neck: Neck: normal visual inspection, no lymphadenopathy and no meningeal signs Chest: Chest palpation & inspection: normal inspection of the chest Resp: Effort & Inspection: normal respiratory effort Auscultation: clear to auscultation bilaterally
[2021-09-06 13:38] VITALS: O2SAT 100
[2021-09-06 13:41] LABS: Influenza A QL RT-PCR Negative (Negative); Influenza B QL RT-PCR Negative (Negative); SARS-CoV-2 RNA PCR Negative (Negative)
[2021-09-06 14:16] VITALS: BP 126/97; PULSE 80; RESP 16; TEMP 36.8; O2SAT 98
== END 2021-09-06 14:23 | disposition home or self-care (01) ==
PROVIDERS: Emergency Provider Internal Medicine Critical Care Medicine
DX: J06.9 Acute upper respiratory infection, unspecified (principal); Z20.822 Contact with and (suspected) exposure to COVID-19
CPT/HCPCS: 87081; 87502; 87880; 99283; C9803; U0003; U0005

== ENCOUNTER 2025-03-25 10:57 | Emergency (ER) | payer OTHER, SELFPAY ==
[2025-03-25] VITALS (10 sets, daily range): BP systolic 133–155; BP diastolic 86–136; PULSE 73–126; RESP 16–28; TEMP 36.7; O2SAT 99–100
--- NOTE | ~2025-03-25 | XR_ITS ---
EXAMINATION: XR chest 1V portable COMPARISON: No comparisons available. HISTORY: Chest pain FINDINGS: The lungs are clear, no effusion. No pneumothorax. Heart is normal size. Mediastinal and hilar contours are within normal limits. Bony thorax no acute abnormality. Miscellaneous: None Impression: No acute cardiopulmonary abnormality. Reviewed, dictated and finalized at location P. [facility] Impression: No acute cardiopulmonary abnormality.
--- NOTE | 2025-03-25 11:01 | ECG_ITS ---
Test Date: 2025-03-25 11:03:49 Measurements Intervals [place] Rate: 118 P: 59 NE: 149 QRS: 61 QRSD: 90 T: 58 QT: 429 QTc: 601 Interpretive Statements SINUS TACHYCARDIA NONSPECIFIC ST & T-WAVE ABNORMALITY ABNORMAL RHYTHM ECG No previous ECG available for comparison Electronically Signed On 03-25-2025 14:44:27 [employer] by Kalen Weir M.D.
[2025-03-25] MEDS: ACETAMINOPHEN 500 MG TABLET 1000 MG PO (11:06)
[2025-03-25] MEDS: ALPRAZolam (*CRX) 0.5 MG TABLET PO (11:06)
[2025-03-25 11:28] LABS: Alanine Aminotransferase 26 U/L (6-50); Albumin Level 5.4 g/dL (3.5-5.1); Alkaline Phosphatase 74 U/L (38-126); Anion Gap 17 mmol/L (4-12); Aspartate Amino Transferase 31 U/L (17-59); Bilirubin,Total 1.6 mg/dL (0.2-1.3); Blood Urea Nitrogen 10 mg/dL (9-20); Calcium 9.8 mg/dL (8.4-10.2); Carbon Dioxide 21 mmol/L (22-30); Chloride 103 mmol/L (98-107); Estimated CRCL calculation 106 ml/min; Estimated Glomerular Filt Rate > 60; Glucose 139 mg/dL (65-110); Osmolality Calculated 293 mOsm/kg (285-295); Potassium 3.3 mmol/L (3.4-5.0); Sodium 141 mmol/L (137-145); Total Protein 8.6 g/dL (6.3-8.2)
--- NOTE | 2025-03-25 11:28 | ED_ITS ---
HPI - Chest Pain General Chief Complaint: Chest Pain Stated Complaint: chest pain Source: patient Mode of arrival: ambulatory Limitations: no limitations History of Present Illness HPI narrative: This is a 29-year-old male with chest discomfort started yesterday midsternal with no shortness of breath patient has a history of anxiety and panic attacks with some no fever chills no nausea vomiting nonsmoker with no abdominal pain no flank pain no dysuria or hematuria. complaint: chest discomfort Onset (ago): day(s) Timing of current episode: episodic Prior episodes: Yes Onset: during rest Pain radiation: none Severity: moderate Pain scale (0-10): 6 Quality: aching and other (Chest pain reproducible with palpation) Exacerbating factors: stress Risk Factors Coronary artery disease risk factors: none Related Data Allergies Allergy/AdvReac Type Severity Reaction Status Date / Time ibuprofen Allergy Severe Seizure Verified 04/13/22 07:12 Review of Systems 2 Review of Systems: All systems reviewed & are unremarkable except as noted in HPI and below PMFSH Past Medical History Medical History Depression History of seizures as a child Surgical History Surgical History No significant past surgical history Family History Family History Mother Alcoholic Father Depression Anxiety Social History Social History Smoking packs per day: 0.5 Smoking cigarettes per day: 10.0 Years smoked: 10 Smoking pack-years: 5.00 Smoking status: Current every day smoker Tobacco type: cigarettes Alcohol intake: current Alcohol use details: occasional Substance use: never Lack of Transportation: No Lack of Food: Never True Current Housing: I Have Housing Concerned About Future Housing: No Difficulty Paying Gas/Electric Bills: No Difficulty Paying for Meds: No Currently Unemployed: No Education: High School Diploma/GED Difficulty w/ Childcare or Family Care: No Living arrangements: with family Gender identity (if verbalized by the patient): Male Exam 2 Const: General: healthy appearing and no acute distress Nutritional Appearance: well nourished Orientation/consciousness: patient oriented x3 Neck: Neck: normal visual inspection and no lymphadenopathy Chest: Chest palpation & inspection: normal inspection of the chest and tenderness Resp: Effort & Inspection: normal respiratory effort Auscultation: clear to auscultation bilaterally Cardio: Rate: regular rate Rhythm: regular rhythm GI: GI Palp: Yes Soft to palpation Auscultation: normal bowel sounds : General: Yes bladder normal to palpation Skin: General skin exam: normal color Rashes: no rashes Wounds: no wounds Psych: Affect: Anxious affect present Course Course Emergency Course: Medical decision making narrative: Arranged patient was evaluated by myself in the emergency department. History obtained from the patient visit independent historian physical exam performed witnessed by nurse. Patient had an EKG which did show sinus tachycardia elevated respiratory rate, x-ray of the chest shows normal with no cardiopulmonary abnormalities. Patient received Tylenol 1g for reproducible chest pain and for his anxiety did receive Xanax. Repeat vitals have markedly improved his respiratory rate down from 20 4 to 16 a blood pressure initially 155/103 her knee and currently 143/93 heart rate initially around 118 on EKG and currently 96. Labs reviewed with patient troponins negative and the dressings will add work unremarkable. Potassium 3.3 will give a dose of p.o. potassium. Repeat assessment patient doing well on repeat exam in no acute distress Symptoms have improved since arrival to the emergency department Repeat vitals have improved Patient agrees with discussion after med shared medical decision-making and agrees with discharge All questions answered to patient's satisfaction Follow up with primary within next 3 to 5 days. Vital Signs Vital signs: Vital Signs Temperature 36.7 C 03/25/25 10:57 Pulse Rate 120 H 03/25/25 10:57 Respiratory Rate 24 H 03/25/25 10:57 Blood Pressure 155/103 H 03/25/25 10:57 Pulse Oximetry 100 03/25/25 10:57 Oxygen Delivery Room Air 03/25/25 10:57 Temperature 36.7 C 03/25/25 10:57 Pulse Rate 96 03/25/25 11:23 Respiratory Rate 16 03/25/25 11:23 Blood Pressure 143/93 H 03/25/25 11:23 Pulse Oximetry 100 03/25/25 11:23 Oxygen Delivery Room Air 03/25/25 10:57 MDM - Chest Pain Lab Data 03/25/25 11:11 Labs: Lab Results 03/25/25 Range/Units 11:11 Sodium Pending Potassium Pending Chloride Pending Carbon Dioxide Pending Anion Gap Pending BUN Pending Creatinine Pending Estim Creat Clear Calc Pending Estimated GFR Pending Glucose Pending Calculated Osmolality Pending Calcium Pending Total Bilirubin Pending AST Pending ALT Pending Alkaline Phosphatase Pending Troponin I Pending Total Protein Pending Albumin Pending Critical Care Time Critical Care Time Critical Care Time: No Discharge Plan Discharge Clinical Impression: Atypical chest pain, Panic attack Patient Disposition: Home Condition: Stable Instructions: Antibiotic Form, Costochondritis (ED), Panic Attack (ED) Additional Instructions: Advised patient to take Tylenol as needed and follow with primary care physician within next 3 to 5 days further evaluation treatment. Patient Language: Romanian Prescriptions: No Action quetiapine 50 mg tablet See Rx Instructions .ROUTE .COMPLEX Qty: 90 1RF Dose Instruction: TAKE 1 TABLET BY MOUTH EVERY DAY AT BEDTIME NEEDED FOR ANXIETY OR INSOMNIA Rx Instructions: TAKE 1 TABLET BY MOUTH EVERY DAY AT BEDTIME NEEDED FOR ANXIETY OR INSOMNIA fluoxetine 40 mg capsule See Rx Instructions .ROUTE .COMPLEX Qty: 90 1RF Dose Instruction: TAKE 1 CAPSULE BY MOUTH EVERY DAY Rx Instructions: TAKE 1 CAPSULE BY MOUTH EVERY DAY Follow-up/Referrals: Sancho Mueller DO [Primary Care Provider, Family Practice]
[2025-03-25 11:39] LABS: Troponin I < 0.012 ng/mL (0.000-0.034)
[2025-03-25] MEDS: POTASSIUM BICARBONATE 25 MEQ TABEF 50 MEQ PO (11:39)
== END 2025-03-25 12:00 | disposition home or self-care (01) ==
LOC: CHSED 11:44
PROVIDERS: Emergency Provider Emergency Medicine; Referring Provider Family Medicine
DX: F41.0 Panic disorder [episodic paroxysmal anxiety] (principal); R07.89 Other chest pain; F17.210 Nicotine dependence, cigarettes, uncomplicated
CPT/HCPCS: 36415; 71045; 80053; 84484; 93005; 99284; A9270